=== PATIENT | male | born 2000 ===

== ENCOUNTER 2020-12-29 18:27 | Emergency (ER) | payer SELFPAY ==
[~2020-12-29] VITALS: Ht 180.3 cm; Wt 155.3 kg
[2020-12-29 18:32] VITALS: BP 143/91
--- NOTE | 2020-12-29 19:14 | NUR ---
pt to room from lobby
--- NOTE | 2020-12-29 19:30 | NUR ---
[employer]PORATE [employer]OCIATE WAS IN TO SPEAK WITH PT. SAME TRIAGE NOTE. PT IN NO DISTRESS. MOTHER AT BS. MD TO SEE.
--- NOTE | 2020-12-29 19:46 | NUR ---
ERP WAS IN TO SEE PT. PT OKAY TO BE DISCHARGED PER ERP.
== END 2020-12-29 19:50 | disposition home or self-care (01) ==
LOC: ED 19:30
DX: T75.89XA Other specified effects of external causes, initial encounter (principal); X58.XXXA Exposure to other specified factors, initial encounter; Y93.89 Activity, other specified; Y92.89 Other specified places as the place of occurrence of the external cause; Y99.8 Other external cause status
CPT/HCPCS: 99281